=== PATIENT | female | born 1965 | race African-American/Black ===

== ENCOUNTER 2019-01-09 19:34 | Emergency (ER) | payer MEDICAID ==
[~2019-01-09] VITALS: Ht 167.6 cm; Wt 72.6 kg
[2019-01-09 19:35] VITALS: BP 147/81
--- NOTE | 2019-01-09 19:35 | NUR ---
ED Nurse Note: Pt was [facility]. C/o abdominal pain today. Pt is A/O X 4, Vital signs stable at this time, waiting for orders.
[2019-01-09] MEDS ORDERED: Dicyclomine HCl 10mg/5ml oral soln ORAL ONE (19:45)
[2019-01-09] MEDS ORDERED: Lidocaine 2% Visc 15ml soln ORAL ONE (19:45)
--- NOTE | 2019-01-09 20:38 | NUR ---
ED Nurse Note: Pain meds given as ordered.
[2019-01-09] MEDS ORDERED: COLACE100 MG ORAL (21:48)
[2019-01-09 22:08] VITALS: BP 147/81
--- NOTE | 2019-01-09 22:08 | NUR ---
Homeless Discharge: Patient is being discharged from medical care. Awake, alert and oriented x4. After care instructions, including referral to community resources were given. Patient verbalized understanding of After care instructions; at this time patient does not request medications, equipment or placement. Patient signed patient consent in the medical record for patient destination upon discharge. All medical devices such as ID band was removed. Patient ambulated out with all personal belongings with steady gait.
--- NOTE | 2019-01-09 22:28 | Emergency Room Report ---
History of Present Illness General Chief Complaint: Abdominal Pain Source: Patient Present Illness HPI Patient a 53-year-old female who presented after increased abdominal pain. Patient a prior history of decreased bowel movements for the past 1 week. She reports having increased constipation. Patient denies any prior medical history. She denies taking any medications. She states she was recently at [facility] [employer] and was told that she had a urinary tract infection was started on oral antibiotics. She denies any vomiting or diarrhea. She denies any recent bloody stools. She denies prior history of liver disease. Allergies: Coded Allergies: No Known Allergies (Unverified , 01/09/19) Patient History Past Medical History: see triage record Last Menstrual Period: n/a Reviewed Nursing Documentation: PMH: Agreed; PSxH: Agreed Nursing Documentation-PMH Past Medical History: No Stated History Review of Systems All Other Systems: negative except mentioned in HPI Physical Exam Vital Signs Date Time Temp Pulse Resp B/P (MAP) Pulse Ox O2 Delivery O2 Flow Rate FiO2 01/09/19 19:30 99.3 81 15 149/88 98 Sp02 EP Interpretation: reviewed, normal General Appearance: normal inspection, well appearing, no apparent distress, alert, Chronically Ill Head: atraumatic ENT: normal ENT inspection, hearing grossly normal, normal voice Neck: normal inspection, full range of motion, supple, no bony tend Respiratory: normal inspection, lungs clear, normal breath sounds, no respiratory distress, no retraction, no wheezing Cardiovascular #1: regular rate, rhythm, no edema Gastrointestinal: normal inspection, normal bowel sounds, non tender, soft, no guarding, no hernia Genitourinary: no CVA tenderness Musculoskeletal: normal inspection, back normal, normal range of motion Neurologic: normal inspection, alert, responsive, speech normal Psychiatric: normal inspection, judgement/insight normal, mood/affect normal Skin: normal inspection, normal color, no rash Medical Decision Making Homeless Attestation I, Dr. Ferreira, the Treating physician, has assessed whether the patient is alert and oriented to person, place and time and has determined that the patient is clinically stable for discharge. Diagnostic Impression: Primary Impression: Nonspecific abdominal pain ER Course Patient presented for abdominal pain. Differential diagnoses included ischemic bowel, appendicitis, perforated viscus, abdominal aortic aneurysm, inferior myocardial infarction, viral gastroenteritis among others. Patient has a benign exam and does not appear to require any further imaging or laboratory testing at this time. KUB showed no evidence of bowel obstruction with normal bowel gas pattern. Patient given prescription for stool softeners. She did not appear to have any evidence of acute abdomen.The patient is advised to follow up with primary care doctor in 1-2 days. Patient is advised to return if any worsening condition or if any changes in status that are concerning. This report is dictated with [employer] receipt and report clerk software which may occasionally lead to discrepancies related to use of this software. Last Vital Signs Date Time Temp Pulse Resp B/P (MAP) Pulse Ox O2 Delivery O2 Flow Rate FiO2 01/09/19 19:30 99.3 81 15 149/88 98 Status: improved Disposition: HOME, SELF-CARE Condition: Stable Scripts Docusate Sodium* (COLACE*) 100 Mg Capsule 100 MG ORAL TWICE A DAY, #20 CAP Prov: Edis Ferreira MD 01/09/19 Patient Instructions: Abdominal Pain, Adult Edis Ferreira MD Jan 09, 2019 22:28
--- NOTE | 2019-01-10 08:36 | Diagnostic Imaging Report ---
Indication: Abdominal pain Technique: Supine view of the abdomen Comparison: none Findings: Bowel gas pattern is unremarkable. Probable calcified fibroid is seen in the left side of the pelvis. No unusual masses. Impression: No acute process
== END 2019-01-09 22:08 | disposition home or self-care (01) ==
LOC: EDBD 19:34 → EMR 19:50
DX: R10.9 Unspecified abdominal pain (principal)
CPT/HCPCS: 74018; 99283